=== PATIENT | male | born 1955 | race Caucasian/White ===

== ENCOUNTER 2022-01-06 19:04 | Inpatient (IN) ==
[2022-01-06] MEDS ORDERED: 0.9 % Sodium Chloride 1,000 ML IVC ONE (20:28)
[2022-01-06] MEDS ORDERED: cefTRIAXone 1,000 MG in Water for inj. (sterile) 10 ML IVP ONE (20:30)
[2022-01-06 21:13] LABS: Basophils % 0.2 %; Hematocrit 51.2 % (37.5-50.1); Hemoglobin 16.9 g/dL (12.9-16.9); Immature Granulocytes % 0.6 % (0-4); Lymphocytes # 0.7 K/mcL (0.6-4.6); Mean Corpuscular Volume 87.8 fL (83.0-100.0); Mean Platelet Volume 11.9 fL (9.4-12.4); Monocytes # 1.2 K/mcL (0.0-1.3); Monocytes % 6.3 %; Neutrophils # 16.6 K/mcL (1.6-8.9); Platelet Count 163 K/mcL (140-400); Red Blood Count 5.83 M/mcL (4.19-5.50); Red Cell Distribution Width 14.3 % (11.5-14.5); Segmented Neutrophils % 88.9 %; White Blood Count 18.7 K/mcL (4.3-11.1)
[2022-01-06 21:23] LABS: INR 1.5; Prothrombin Time 17.2 Seconds (9.4-12.1)
[2022-01-06 21:26] LABS: Activated Partial Thrombo Time 36.4 Seconds (26.0-36.0)
[2022-01-06 21:36] LABS: Alanine Aminotransferase 13 Units/L (7-52); Albumin 4.6 g/dL (3.5-5.7); Albumin/Globulin Ratio 1.4 (1.1-2.2); Alkaline Phosphatase 56 Units/L (34-104); Aspartate Amino Transferase 15 Units/L (13-39); BUN/Creatinine Ratio 14 (6-26); Bilirubin,Direct 0.2 mg/dL (0.0-0.2); Bilirubin,Total 1.2 mg/dL (0.3-1.0); Blood Urea Nitrogen 18 mg/dL (8-23); Calcium 9.6 mg/dL (8.6-10.3); Carbon Dioxide 24 mEq/L (23-29); Chloride 102 mEq/L (98-107); Globulin 3.3 g/dL (2.4-3.5); Glucose 151 mg/dL (70-105); Magnesium 2.1 mg/dL (1.6-2.6); Osmolality,Calculated 289 (280-300); Phosphorous 2.4 mg/dL (2.7-4.5); Potassium 3.9 mEq/L (3.5-5.1); Sodium 137 mEq/L (136-145); Total Protein 7.9 g/dL (6.4-8.9); Troponin I 0.08 ng/mL (< 0.04); eGFR For African Americans > 60 (> 60); eGFR For Non-African Americans 55 (> 60)
[2022-01-06 21:48] LABS: Influenza A PCR Negative (Negative); Influenza B PCR Negative (Negative); Resp. Syncytial Virus PCR Negative (Negative)
[2022-01-06 21:49] LABS: SARS-CoV-2 by PCR (In House) Negative (Negative)
[2022-01-06 22:05] LABS: Bacteria,Urine Few per hpf (None-Few); Bilirubin,Urine Negative (Negative); Blood,Urine Small (Negative); Clarity,Urine Clear (Clear); Color,Urine Yellow (Yellow); Glucose,Urine (UA) Normal (Normal); Ketones,Urine 40 mg/dL (Negative); Leukocyte Esterase,Urine Negative (Negative); Mucus,Urine Few per lpf (None-Few); Nitrite,Urine Negative (Negative); Protein,Urine 100 mg/dL (Neg-Trace); RBC,Urine 0-3 per hpf (0-3); Specific Gravity,Urine 1.027 (1.010-1.025); Squamous Epithelial Cell,Urine Few per hpf (None-Few); Urobilinogen,Urine Normal (Normal); WBC,Urine 0-3 per hpf (0-3)
[2022-01-06] MEDS ORDERED: Azithromycin 500 MG in 0.9 % Sodium Chloride 250 ML IVPB ONE (22:36)
[2022-01-07] MEDS ORDERED: Melatonin 3 MG TABLET PO PRN (00:04)
[2022-01-07] MEDS ORDERED: Acetaminophen 325 MG TABLET PO PRN (00:04)
[2022-01-07] MEDS ORDERED: *HR* HYDROcodone/Acet 5/325 mg TABLET PO PRN (00:04)
[2022-01-07] MEDS ORDERED: Naloxone 0.4 MG/ML INJ IVP PRN (00:04)
[2022-01-07] MEDS ORDERED: Ondansetron 4 MG/2 ML VIAL IVP PRN (00:04)
[2022-01-07] MEDS ORDERED: Acetaminophen IV 500 MG/50 ML BAG IVPB ONE (01:00)
[2022-01-07] MEDS ORDERED: Thiamine (B-1) 100 MG in 0.9 % Sodium Chloride 50 ML IVPB STA (01:06)
[2022-01-07 01:32] LABS: VBG HCO3 23 mEq/L (21-27); VBG PCO2 39 mmHg (41-51); VBG PH 7.37 pH Units (7.32-7.42); VBG PO2 50 mmHg (25-50)
[2022-01-07 01:38] LABS: Basophils % 0.2 %
[2022-01-07 01:40] LABS: Hematocrit 48.2 % (37.5-50.1); Hemoglobin 15.8 g/dL (12.9-16.9); Immature Granulocytes % 0.5 % (0-4); Immature Platelets 10.3 % (1.1-6.1); Mean Corpuscular HGB Conc 32.8 g/dL (31.6-35.5); Mean Corpuscular Volume 88.6 fL (83.0-100.0); Mean Platelet Volume 11.8 fL (9.4-12.4); Monocytes # 1.5 K/mcL (0.0-1.3); Monocytes % 7.3 %; Nucleated Red Blood Cells 0.1 /100 WBC (0); Platelet Count 139 K/mcL (140-400); Red Blood Count 5.44 M/mcL (4.19-5.50); Red Cell Distribution Width 14.4 % (11.5-14.5); White Blood Count 20.2 K/mcL (4.3-11.1)
[2022-01-07 01:41] LABS: Neutrophils # 17.6 K/mcL (1.6-8.9)
[2022-01-07 01:43] LABS: INR 1.5; Prothrombin Time 17.2 Seconds (9.4-12.1)
[2022-01-07 01:46] LABS: Activated Partial Thrombo Time 29.3 Seconds (26.0-36.0)
[2022-01-07 01:52] LABS: Alanine Aminotransferase 12 Units/L (7-52); Albumin 4.3 g/dL (3.5-5.7); Albumin/Globulin Ratio 1.3 (1.1-2.2); Alkaline Phosphatase 53 Units/L (34-104); Aspartate Amino Transferase 15 Units/L (13-39); BUN/Creatinine Ratio 17 (6-26); Blood Urea Nitrogen 17 mg/dL (8-23); C-Reactive Protein 133 mg/L (Less than 10); Calcium 8.9 mg/dL (8.6-10.3); Carbon Dioxide 23 mEq/L (23-29); Chloride 105 mEq/L (98-107); Chol/HDL Ratio 4.4 (0-4.9); Cholesterol 240 mg/dL (< 200); Creatine Kinase 133 Units/L (30-223); Globulin 3.4 g/dL (2.4-3.5); Glucose 122 mg/dL (70-105); HDL Cholesterol 55 mg/dL (40-59); LDL Cholesterol,Calculated 170 mg/dL (< 100); Osmolality,Calculated 287 (280-300); Phosphorous 1.5 mg/dL (2.7-4.5); Potassium 3.6 mEq/L (3.5-5.1); Sodium 137 mEq/L (136-145); Total Protein 7.7 g/dL (6.4-8.9); Triglycerides 74 mg/dL (< 150); eGFR For African Americans > 60 (> 60); eGFR For Non-African Americans > 60 (> 60)
[2022-01-07] MEDS ORDERED: Vancomycin 1,250 MG/262.5 ML IV.SOLN IVPB SCH (02:00)
[2022-01-07] MEDS: 0.9 % Sodium Chloride 1,000 ML IVC SCH (02:25)
[2022-01-07 02:43] LABS: Acetaminophen < 10 mcg/mL (10-20); Salicylate < 2.5 mg/dL (15.0-30.0)
[2022-01-07] MEDS ORDERED: Saliva Stimulant 44.3ml BOTTLE PO PRN (02:51)
[2022-01-07] MEDS ORDERED: *HR* Dextrose 50 % in Water (Syg) 50 ML SYRINGE IVP PRN (02:51)
[2022-01-07] MEDS ORDERED: D5% in Water 1,000 ML IVC PRN (02:51)
[2022-01-07] MEDS ORDERED: Dextrose Gel 15 GM/37.5 ML TUBE PO PRN ×2 (02:51)
[2022-01-07] MEDS ORDERED: Potassium Phosphate 44 MEQ in 0.9 % Sodium Chloride 250 ML IVPB ONE (03:00)
[2022-01-07 03:02] LABS: Thyroid Stimulating Hormone 0.207 mcIU/mL (0.340-5.600)
[2022-01-07] MEDS ORDERED: Iopamidol - 370 500 ML MLS IVP ONE (03:44)
[2022-01-07] MEDS: Ampicillin 2,000 MG in 0.9 % Sodium Chloride Mini Bag 100 ML IVPB SCH ×5 (03:56→20:12)
[2022-01-07 04:02] LABS: Estimated Average Glucose 117 mg/dl; Hemoglobin A1C 5.7 %
[2022-01-07 04:07] LABS: Folate 5.7 ng/mL (3.0-16.0)
[2022-01-07] MEDS: Ipratropium/Albuterol Neb 3 ML IH SCH ×4 (04:11→22:33)
[2022-01-07] MEDS ORDERED: Piperacillin/Tazobactam 3.375 GM in 0.9 % Sodium Chloride Mini Bag 100 ML IVPB SCH (08:00)
[2022-01-07] MEDS ORDERED: Thiamine (B-1) 100 MG in 0.9 % Sodium Chloride 50 ML IVPB SCH (09:00)
[2022-01-07] MEDS ORDERED: cefTRIAXone 2,000 MG in 0.9 % Sodium Chloride Mini Bag 100 ML IVPB SCH (09:00)
[2022-01-07] MEDS: Lactobacillus 1 EACH CAP.SPRINK PO SCH ×2 (10:30→20:11)
[2022-01-07] MEDS: Aspirin Enteric Coated 81 MG Tablet PO SCH (10:30)
[2022-01-07] MEDS: Chlorhexidine Rinse 15 ML MOUTHWASH MM SCH (10:30)
[2022-01-07] MEDS: cefTRIAXone 2,000 MG in 0.9 % Sodium Chloride Mini Bag 100 ML IVPB SCH ×2 (10:30→20:12)
[2022-01-07] MEDS: Acyclovir 700 MG in D5% in Water 250 ML IVPB SCH ×2 (10:30→15:55)
[2022-01-07] MEDS ORDERED: *HR* LORazepam 2 MG/ML VIAL IVP ONE (11:22)
[2022-01-07 13:13] LABS: Red Blood Cell,CSF < 2000 RBC/mcL
[2022-01-07 13:50] LABS: Glucose,CSF 39 mg/dL (40-70); Total Protein,CSF > 200 mg/dL (15-45)
[2022-01-07 14:08] LABS: Appearance,CSF Hazy (Clear)
[2022-01-07] MEDS: Thiamine (B-1) 100 MG, Folic Acid 1 MG, MVI, adult with vitamin K 10 ML in 0.9 % Sodi... IVPB SCH (18:39)
[2022-01-07] MEDS ORDERED: Azithromycin 500 MG in 0.9 % Sodium Chloride 250 ML IVPB SCH (20:00)
[2022-01-07] MEDS: cefTRIAXone 2,000 MG in 0.9 % Sodium Chloride 20 ML IVPB SCH (20:33)
[2022-01-07 20:41] LABS: Adenovirus Not Detected (Not Detect); Bordetella Pertussis Not Detected (Not Detect); Chlamydophila pneumoniae Not Detected (Not Detect); Coronavirus 229E Not Detected (Not Detect); Coronavirus HKU1 Not Detected (Not Detect); Coronavirus NL63 Not Detected (Not Detect); Coronavirus OC43 Not Detected (Not Detect); Human Metapneumovirus Not Detected (Not Detect); Human Rhinovirus/Enterovirus Not Detected (Not Detect); Influenza A Subtype 2009 H1 Not Detected (Not Detect); Influenza B Not Detected (Not Detect); Mycoplasma pneumoniae Not Detected (Not Detect); Parainfluenza Virus 1 Not Detected (Not Detect); Parainfluenza Virus 2 Not Detected (Not Detect); Parainfluenza Virus 3 Not Detected (Not Detect); Parainfluenza Virus 4 Not Detected (Not Detect); Respiratory Syncytial Virus Not Detected (Not Detect); SARS-CoV-2 Not Detected (Not Detect)
[2022-01-08] MEDS: Chlorhexidine Rinse 15 ML MOUTHWASH MM SCH ×3 (00:39→22:07)
[2022-01-08] MEDS: Ampicillin 2,000 MG in 0.9 % Sodium Chloride Mini Bag 100 ML IVPB SCH ×6 (00:45→22:23)
[2022-01-08] MEDS: Acyclovir 700 MG in D5% in Water 250 ML IVPB SCH ×3 (00:45→16:27)
[2022-01-08] MEDS: Ipratropium/Albuterol Neb 3 ML IH SCH ×4 (04:33→21:25)
[2022-01-08 05:55] LABS: Basophils % 0.2 %; Hematocrit 40.5 % (37.5-50.1); Immature Granulocytes % 0.4 % (0-4); Lymphocytes # 1.1 K/mcL (0.6-4.6); Lymphocytes % 7.4 %; Mean Corpuscular HGB Conc 32.3 g/dL (31.6-35.5); Mean Corpuscular Hemoglobin 29.2 pg (28.0-33.3); Mean Corpuscular Volume 90.2 fL (83.0-100.0); Mean Platelet Volume 11.8 fL (9.4-12.4); Monocytes # 1.4 K/mcL (0.0-1.3); Monocytes % 9.2 %; Neutrophils # 12.2 K/mcL (1.6-8.9); Platelet Count 122 K/mcL (140-400); Red Blood Count 4.49 M/mcL (4.19-5.50); Segmented Neutrophils % 82.8 %; White Blood Count 14.7 K/mcL (4.3-11.1)
[2022-01-08 05:58] LABS: Hemoglobin 13.1 g/dL (12.9-16.9)
[2022-01-08 06:02] LABS: INR 1.3; Prothrombin Time 14.4 Seconds (9.4-12.1)
[2022-01-08 06:04] LABS: Activated Partial Thrombo Time 28.1 Seconds (26.0-36.0)
[2022-01-08 06:23] LABS: BUN/Creatinine Ratio 13 (6-26); Blood Urea Nitrogen 11 mg/dL (8-23); Carbon Dioxide 23 mEq/L (23-29); Chloride 108 mEq/L (98-107); Glucose 115 mg/dL (70-105); Magnesium 2.1 mg/dL (1.6-2.6); Osmolality,Calculated 288 (280-300); Phosphorous 1.6 mg/dL (2.7-4.5); Potassium 3.7 mEq/L (3.5-5.1); Sodium 139 mEq/L (136-145); eGFR For African Americans > 60 (> 60); eGFR For Non-African Americans > 60 (> 60)
[2022-01-08] MEDS: cefTRIAXone 2,000 MG in 0.9 % Sodium Chloride 20 ML IVPB SCH ×2 (09:18→22:06)
[2022-01-08] MEDS: Dexamethasone Sodium Phos/PF 10 MG/ML VIAL IVP SCH ×3 (09:18→22:08)
[2022-01-08] MEDS: Aspirin Enteric Coated 81 MG Tablet PO SCH (09:19)
[2022-01-08] MEDS: Lactobacillus 1 EACH CAP.SPRINK PO SCH ×2 (09:19→22:08)
[2022-01-08] MEDS ORDERED: 0.9 % Sodium Chloride 1,000 ML IVC SCH (11:00)
[2022-01-08] MEDS: 0.9 % Sodium Chloride 1,000 ML IVC SCH (13:00)
[2022-01-08] MEDS ORDERED: Potassium Phosphate 44 MEQ in 0.9 % Sodium Chloride 250 ML IVPB ONE (13:00)
[2022-01-08] MEDS: Thiamine (B-1) 100 MG, Folic Acid 1 MG, MVI, adult with vitamin K 10 ML in 0.9 % Sodi... IVPB SCH (22:05)
[2022-01-09] MEDS: Dexamethasone Sodium Phos/PF 10 MG/ML VIAL IVP SCH ×4 (01:46→21:08)
[2022-01-09] MEDS: Ampicillin 2,000 MG in 0.9 % Sodium Chloride Mini Bag 100 ML IVPB SCH ×6 (02:00→21:09)
[2022-01-09] MEDS: Acyclovir 700 MG in D5% in Water 250 ML IVPB SCH ×3 (02:30→15:09)
[2022-01-09] MEDS: Ipratropium/Albuterol Neb 3 ML IH SCH ×4 (04:01→22:15)
[2022-01-09] MEDS: *HR* Enoxaparin 40 MG/0.4 ML SYRINGE SQ SCH (04:58)
[2022-01-09 05:05] LABS: Immature Granulocytes % 0.5 % (0-4); Lymphocytes % 3.5 %; Monocytes % 3.9 %; Red Blood Count 3.96 M/mcL (4.19-5.50); Red Cell Distribution Width 13.5 % (11.5-14.5); Segmented Neutrophils % 92.1 %
[2022-01-09 05:07] LABS: Hematocrit 34.6 % (37.5-50.1); Hemoglobin 11.5 g/dL (12.9-16.9); Immature Platelets 11.7 % (1.1-6.1); Lymphocytes # 0.4 K/mcL (0.6-4.6); Mean Corpuscular HGB Conc 33.2 g/dL (31.6-35.5); Mean Corpuscular Volume 87.4 fL (83.0-100.0); Mean Platelet Volume 11.7 fL (9.4-12.4); Monocytes # 0.4 K/mcL (0.0-1.3); Platelet Count 129 K/mcL (140-400); White Blood Count 10.8 K/mcL (4.3-11.1)
[2022-01-09 05:22] LABS: BUN/Creatinine Ratio 15 (6-26); Blood Urea Nitrogen 13 mg/dL (8-23); Calcium 7.7 mg/dL (8.6-10.3); Carbon Dioxide 25 mEq/L (23-29); Chloride 106 mEq/L (98-107); Glucose 182 mg/dL (70-105); Magnesium 2.3 mg/dL (1.6-2.6); Osmolality,Calculated 287 (280-300); Phosphorous 1.3 mg/dL (2.7-4.5); Potassium 3.5 mEq/L (3.5-5.1); Sodium 136 mEq/L (136-145); eGFR For African Americans > 60 (> 60); eGFR For Non-African Americans > 60 (> 60)
[2022-01-09 08:44] LABS: Amphetamine Screen,Urine Negative ng/mL (Cutoff=1000); Barbiturate Screen,Urine Negative ng/mL (Cutoff=200); Benzodiazepines Screen,Urine Negative ng/mL (Cutoff=200); Cannabinoid Screen,Urine Negative ng/mL (Cutoff = 50); Cocaine Screen,Urine Negative ng/mL (Cutoff= 300); Opiate Screen,Urine Negative ng/mL (Cutoff=300); Phencyclidine Screen,Urine Negative ng/mL (Cutoff=25)
[2022-01-09] MEDS: cefTRIAXone 2,000 MG in 0.9 % Sodium Chloride 20 ML IVPB SCH ×2 (08:58→21:08)
[2022-01-09] MEDS: Chlorhexidine Rinse 15 ML MOUTHWASH MM SCH (09:00)
[2022-01-09] MEDS: Lactobacillus 1 EACH CAP.SPRINK PO SCH ×2 (09:01→21:08)
[2022-01-09] MEDS: Aspirin Enteric Coated 81 MG Tablet PO SCH (09:01)
[2022-01-09] MEDS: Vancomycin 1,500 MG/265 ML IV.SOLN IVPB SCH (11:12)
[2022-01-09] MEDS: Thiamine (B-1) 100 MG, Folic Acid 1 MG, MVI, adult with vitamin K 10 ML in 0.9 % Sodi... IVPB SCH (17:54)
[2022-01-10] MEDS: Ampicillin 2,000 MG in 0.9 % Sodium Chloride Mini Bag 100 ML IVPB SCH ×7 (00:02→23:30)
[2022-01-10] MEDS: Acyclovir 700 MG in D5% in Water 250 ML IVPB SCH ×4 (00:34→20:42)
[2022-01-10] MEDS: Vancomycin 1,500 MG/265 ML IV.SOLN IVPB SCH ×2 (00:36→13:10)
[2022-01-10] MEDS: Dexamethasone Sodium Phos/PF 10 MG/ML VIAL IVP SCH ×5 (01:37→23:29)
[2022-01-10] MEDS: Ipratropium/Albuterol Neb 3 ML IH SCH ×2 (03:53→10:30)
[2022-01-10] MEDS: *HR* Enoxaparin 40 MG/0.4 ML SYRINGE SQ SCH (05:16)
[2022-01-10 06:34] LABS: BUN/Creatinine Ratio 18 (6-26); Blood Urea Nitrogen 14 mg/dL (8-23); Calcium 7.9 mg/dL (8.6-10.3); Carbon Dioxide 25 mEq/L (23-29); Chloride 107 mEq/L (98-107); Glucose 147 mg/dL (70-105); Osmolality,Calculated 291 (280-300); Phosphorous 2.9 mg/dL (2.7-4.5); Potassium 3.4 mEq/L (3.5-5.1); Sodium 139 mEq/L (136-145)
[2022-01-10] MEDS: cefTRIAXone 2,000 MG in 0.9 % Sodium Chloride 20 ML IVPB SCH ×2 (10:07→20:41)
[2022-01-10] MEDS: Aspirin Enteric Coated 81 MG Tablet PO SCH (10:08)
[2022-01-10] MEDS: Lactobacillus 1 EACH CAP.SPRINK PO SCH ×2 (10:08→20:41)
[2022-01-10] MEDS ORDERED: Ipratropium/Albuterol Neb 3 ML IH PRN (14:51)
[2022-01-10 17:26] LABS: Alanine Aminotransferase 220 Units/L (7-52); Albumin 3.3 g/dL (3.5-5.7); Albumin/Globulin Ratio 1.2 (1.1-2.2); Alkaline Phosphatase 72 Units/L (34-104); Aspartate Amino Transferase 84 Units/L (13-39); BUN/Creatinine Ratio 17 (6-26); Bilirubin,Direct 0.1 mg/dL (0.0-0.2); Bilirubin,Indirect 0.2 mg/dL (0.0-1.0); Bilirubin,Total 0.3 mg/dL (0.3-1.0); Blood Urea Nitrogen 15 mg/dL (8-23); Calcium 8.1 mg/dL (8.6-10.3); Carbon Dioxide 25 mEq/L (23-29); Chloride 108 mEq/L (98-107); Globulin 2.7 g/dL (2.4-3.5); Glucose 166 mg/dL (70-105); Osmolality,Calculated 293 (280-300); Potassium 3.6 mEq/L (3.5-5.1); Sodium 139 mEq/L (136-145)
[2022-01-10 18:18] LABS: Basophils % 0.1 %; Hematocrit 38.2 % (37.5-50.1); Hemoglobin 12.6 g/dL (12.9-16.9); Immature Granulocytes % 1.1 % (0-4); Lymphocytes # 0.5 K/mcL (0.6-4.6); Lymphocytes % 3.4 %; Mean Corpuscular Hemoglobin 28.7 pg (28.0-33.3); Mean Platelet Volume 12.2 fL (9.4-12.4); Monocytes # 0.8 K/mcL (0.0-1.3); Monocytes % 5.6 %; Neutrophils # 12.6 K/mcL (1.6-8.9); Platelet Count 177 K/mcL (140-400); Red Blood Count 4.39 M/mcL (4.19-5.50); Red Cell Distribution Width 13.9 % (11.5-14.5); Segmented Neutrophils % 89.8 %
[2022-01-11] MEDS: Vancomycin 1,500 MG/265 ML IV.SOLN IVPB SCH (00:19)
[2022-01-11 02:45] LABS: Basophils % 0.1 %; Hematocrit 34.6 % (37.5-50.1); Hemoglobin 11.5 g/dL (12.9-16.9); Immature Granulocytes % 1.1 % (0-4); Lymphocytes # 0.4 K/mcL (0.6-4.6); Lymphocytes % 3.5 %; Mean Corpuscular HGB Conc 33.2 g/dL (31.6-35.5); Mean Corpuscular Hemoglobin 28.9 pg (28.0-33.3); Mean Corpuscular Volume 86.9 fL (83.0-100.0); Mean Platelet Volume 12.8 fL (9.4-12.4); Monocytes # 0.7 K/mcL (0.0-1.3); Monocytes % 5.7 %; Neutrophils # 10.8 K/mcL (1.6-8.9); Platelet Count 174 K/mcL (140-400); Red Blood Count 3.98 M/mcL (4.19-5.50); Red Cell Distribution Width 13.7 % (11.5-14.5); Segmented Neutrophils % 89.6 %
[2022-01-11 03:01] LABS: BUN/Creatinine Ratio 23 (6-26); Blood Urea Nitrogen 19 mg/dL (8-23); Carbon Dioxide 25 mEq/L (23-29); Chloride 108 mEq/L (98-107); Glucose 144 mg/dL (70-105); Osmolality,Calculated 293 (280-300); Sodium 139 mEq/L (136-145)
[2022-01-11] MEDS ORDERED: hydrALAZINE 10 MG TABLET PO ONE (03:48)
[2022-01-11] MEDS: Ampicillin 2,000 MG in 0.9 % Sodium Chloride Mini Bag 100 ML IVPB SCH ×6 (03:59→23:55)
[2022-01-11] MEDS: Acyclovir 700 MG in D5% in Water 250 ML IVPB SCH ×3 (03:59→20:26)
[2022-01-11] MEDS: Dexamethasone Sodium Phos/PF 10 MG/ML VIAL IVP SCH (05:28)
[2022-01-11] MEDS: *HR* Enoxaparin 40 MG/0.4 ML SYRINGE SQ SCH (05:28)
[2022-01-11] MEDS: amLODIPine 5 MG TABLET PO SCH (07:52)
[2022-01-11] MEDS: Lactobacillus 1 EACH CAP.SPRINK PO SCH ×2 (07:52→20:30)
[2022-01-11] MEDS: Aspirin Enteric Coated 81 MG Tablet PO SCH (07:52)
[2022-01-11] MEDS: cefTRIAXone 2,000 MG in 0.9 % Sodium Chloride 20 ML IVPB SCH ×2 (07:52→21:08)
[2022-01-11 10:37] LABS: Albumin 2.9 g/dL (3.5-5.7); Albumin/Globulin Ratio 1.2 (1.1-2.2); Bilirubin,Indirect 0.3 mg/dL (0.0-1.0); Bilirubin,Total 0.3 mg/dL (0.3-1.0); Globulin 2.4 g/dL (2.4-3.5); Total Protein 5.3 g/dL (6.4-8.9)
[2022-01-11] MEDS ORDERED: Vancomycin 1,750 MG/517.5 ML IV.SOLN IVPB SCH (12:00)
[2022-01-11 14:12] LABS: Influenza A PCR Negative (Negative); Influenza B PCR Negative (Negative); Resp. Syncytial Virus PCR Negative (Negative)
[2022-01-11 14:13] LABS: SARS-CoV-2 by PCR (In House) Negative (Negative)
[2022-01-11 17:50] LABS: HSV Source CSF
[2022-01-12 01:43] LABS: Basophils % 0.3 %; Hematocrit 36.5 % (37.5-50.1); Hemoglobin 11.9 g/dL (12.9-16.9); Immature Granulocytes % 2.3 % (0-4); Lymphocytes # 0.9 K/mcL (0.6-4.6); Lymphocytes % 6.1 %; Mean Corpuscular HGB Conc 32.6 g/dL (31.6-35.5); Mean Corpuscular Hemoglobin 28.9 pg (28.0-33.3); Mean Corpuscular Volume 88.6 fL (83.0-100.0); Mean Platelet Volume 12.3 fL (9.4-12.4); Monocytes # 1.2 K/mcL (0.0-1.3); Monocytes % 8.5 %; Neutrophils # 12.1 K/mcL (1.6-8.9); Platelet Count 186 K/mcL (140-400); Red Blood Count 4.12 M/mcL (4.19-5.50); Red Cell Distribution Width 13.8 % (11.5-14.5); Segmented Neutrophils % 82.8 %; White Blood Count 14.6 K/mcL (4.3-11.1)
[2022-01-12 02:06] LABS: Blood Urea Nitrogen 16 mg/dL (8-23); Calcium 7.7 mg/dL (8.6-10.3); Carbon Dioxide 29 mEq/L (23-29); Chloride 108 mEq/L (98-107); Glucose 108 mg/dL (70-105); Osmolality,Calculated 294 (280-300); Potassium 3.8 mEq/L (3.5-5.1); Sodium 141 mEq/L (136-145)
[2022-01-12 03:02] LABS: BUN/Creatinine Ratio 19 (6-26)
[2022-01-12] MEDS: Acyclovir 700 MG in D5% in Water 250 ML IVPB SCH ×3 (04:19→19:52)
[2022-01-12] MEDS: Ampicillin 2,000 MG in 0.9 % Sodium Chloride Mini Bag 100 ML IVPB SCH ×6 (04:20→23:16)
[2022-01-12] MEDS: *HR* Enoxaparin 40 MG/0.4 ML SYRINGE SQ SCH (05:51)
[2022-01-12] MEDS ORDERED: Gadolinium Contrast Agent (WT Based) IV PRN (09:27)
[2022-01-12] MEDS: cefTRIAXone 2,000 MG in 0.9 % Sodium Chloride 20 ML IVPB SCH ×2 (09:29→20:51)
[2022-01-12] MEDS: amLODIPine 5 MG TABLET PO SCH (09:31)
[2022-01-12] MEDS: Lactobacillus 1 EACH CAP.SPRINK PO SCH ×2 (09:31→20:48)
[2022-01-12] MEDS: Aspirin Enteric Coated 81 MG Tablet PO SCH (09:31)
[2022-01-12] MEDS ORDERED: amLODIPine 5 MG TABLET PO ONE (10:47)
[2022-01-12] MEDS ORDERED: *HR* LORazepam 2 MG/ML VIAL IVP ONE (14:30)
[2022-01-13] MEDS: Ampicillin 2,000 MG in 0.9 % Sodium Chloride Mini Bag 100 ML IVPB SCH ×5 (03:23→20:44)
[2022-01-13] MEDS: Acyclovir 700 MG in D5% in Water 250 ML IVPB SCH ×3 (03:24→21:24)
[2022-01-13] MEDS: *HR* Enoxaparin 40 MG/0.4 ML SYRINGE SQ SCH (06:13)
[2022-01-13] MEDS: cefTRIAXone 2,000 MG in 0.9 % Sodium Chloride 20 ML IVPB SCH ×2 (07:44→20:43)
[2022-01-13] MEDS: Lactobacillus 1 EACH CAP.SPRINK PO SCH ×2 (07:45→20:44)
[2022-01-13] MEDS: amLODIPine 5 MG TABLET PO SCH (07:45)
[2022-01-13] MEDS: Aspirin Enteric Coated 81 MG Tablet PO SCH (07:45)
[2022-01-13 09:58] LABS: Basophils # 0.1 K/mcL (0.0-0.2); Basophils % 0.6 %; Eosinophils # 0.3 K/mcL (0.0-0.6); Eosinophils % 2.4 %; Hematocrit 41.4 % (37.5-50.1); Immature Granulocytes % 3.3 % (0-4); Lymphocytes # 1.4 K/mcL (0.6-4.6); Lymphocytes % 10.8 %; Mean Corpuscular HGB Conc 32.9 g/dL (31.6-35.5); Mean Corpuscular Hemoglobin 28.8 pg (28.0-33.3); Mean Corpuscular Volume 87.7 fL (83.0-100.0); Mean Platelet Volume 11.3 fL (9.4-12.4); Monocytes # 0.8 K/mcL (0.0-1.3); Monocytes % 6.4 %; Neutrophils # 9.7 K/mcL (1.6-8.9); Nucleated Red Blood Cells 0.3 /100 WBC (0); Platelet Count 241 K/mcL (140-400); Red Blood Count 4.72 M/mcL (4.19-5.50); Red Cell Distribution Width 13.7 % (11.5-14.5); Segmented Neutrophils % 76.5 %; White Blood Count 12.7 K/mcL (4.3-11.1)
[2022-01-13 10:17] LABS: Hemoglobin 13.6 g/dL (12.9-16.9)
[2022-01-13 10:23] LABS: Calcium 7.9 mg/dL (8.6-10.3); Potassium 3.6 mEq/L (3.5-5.1)
[2022-01-13 10:37] LABS: Borrelia burgdorferi Abs CSF 0.19 LIV (<=0.99)
[2022-01-14] MEDS: Ampicillin 2,000 MG in 0.9 % Sodium Chloride Mini Bag 100 ML IVPB SCH ×6 (01:45→19:26)
[2022-01-14] MEDS: Acyclovir 700 MG in D5% in Water 250 ML IVPB SCH ×3 (05:39→19:26)
[2022-01-14] MEDS: *HR* Enoxaparin 40 MG/0.4 ML SYRINGE SQ SCH (06:07)
[2022-01-14] MEDS: cefTRIAXone 2,000 MG in 0.9 % Sodium Chloride 20 ML IVPB SCH ×2 (07:39→21:40)
[2022-01-14] MEDS: amLODIPine 5 MG TABLET PO SCH (07:39)
[2022-01-14] MEDS: Aspirin Enteric Coated 81 MG Tablet PO SCH (07:39)
[2022-01-14] MEDS: Lactobacillus 1 EACH CAP.SPRINK PO SCH ×2 (07:39→21:39)
[2022-01-14 09:51] LABS: Basophils # 0.1 K/mcL (0.0-0.2); Basophils % 0.5 %; Eosinophils # 0.4 K/mcL (0.0-0.6); Eosinophils % 3.8 %; Hematocrit 39.9 % (37.5-50.1); Hemoglobin 13.1 g/dL (12.9-16.9); Immature Granulocytes % 4.4 % (0-4); Lymphocytes # 1.1 K/mcL (0.6-4.6); Mean Corpuscular HGB Conc 32.8 g/dL (31.6-35.5); Mean Corpuscular Volume 88.3 fL (83.0-100.0); Mean Platelet Volume 10.9 fL (9.4-12.4); Monocytes # 0.8 K/mcL (0.0-1.3); Monocytes % 7.2 %; Neutrophils # 8.4 K/mcL (1.6-8.9); Nucleated Red Blood Cells 0.2 /100 WBC (0); Platelet Count 227 K/mcL (140-400); Red Blood Count 4.52 M/mcL (4.19-5.50); Red Cell Distribution Width 13.9 % (11.5-14.5); Segmented Neutrophils % 74.1 %; White Blood Count 11.4 K/mcL (4.3-11.1)
[2022-01-14 10:06] LABS: BUN/Creatinine Ratio 15 (6-26); Blood Urea Nitrogen 13 mg/dL (8-23); Calcium 7.8 mg/dL (8.6-10.3); Carbon Dioxide 30 mEq/L (23-29); Chloride 104 mEq/L (98-107); Glucose 91 mg/dL (70-105); Osmolality,Calculated 286 (280-300); Potassium 3.6 mEq/L (3.5-5.1); Sodium 138 mEq/L (136-145)
[2022-01-14 10:23] LABS: ANA IgG by ELISA NONE DETECTED (None Detected)
[2022-01-15] MEDS: Ampicillin 2,000 MG in 0.9 % Sodium Chloride Mini Bag 100 ML IVPB SCH ×4 (00:58→12:47)
[2022-01-15 05:35] LABS: Basophils # 0.1 K/mcL (0.0-0.2); Basophils % 0.4 %; Eosinophils # 0.6 K/mcL (0.0-0.6); Eosinophils % 4.6 %; Hematocrit 37.7 % (37.5-50.1); Hemoglobin 12.5 g/dL (12.9-16.9); Immature Granulocytes % 3.3 % (0-4); Lymphocytes # 1.3 K/mcL (0.6-4.6); Lymphocytes % 10.8 %; Mean Corpuscular HGB Conc 33.2 g/dL (31.6-35.5); Mean Corpuscular Hemoglobin 29.1 pg (28.0-33.3); Mean Corpuscular Volume 87.9 fL (83.0-100.0); Mean Platelet Volume 11.1 fL (9.4-12.4); Monocytes # 0.9 K/mcL (0.0-1.3); Monocytes % 7.4 %; Neutrophils # 8.8 K/mcL (1.6-8.9); Platelet Count 261 K/mcL (140-400); Red Blood Count 4.29 M/mcL (4.19-5.50); Red Cell Distribution Width 13.9 % (11.5-14.5); Segmented Neutrophils % 73.5 %
[2022-01-15] MEDS: Acyclovir 700 MG in D5% in Water 250 ML IVPB SCH ×3 (05:47→21:44)
[2022-01-15] MEDS: *HR* Enoxaparin 40 MG/0.4 ML SYRINGE SQ SCH ×2 (05:47→06:42)
[2022-01-15 06:22] LABS: Albumin/Globulin Ratio 1.3 (1.1-2.2); BUN/Creatinine Ratio 15 (6-26); Bilirubin,Direct 0.1 mg/dL (0.0-0.2); Bilirubin,Indirect 0.2 mg/dL (0.0-1.0); Bilirubin,Total 0.3 mg/dL (0.3-1.0); Blood Urea Nitrogen 13 mg/dL (8-23); Carbon Dioxide 28 mEq/L (23-29); Chloride 106 mEq/L (98-107); Globulin 2.3 g/dL (2.4-3.5); Glucose 90 mg/dL (70-105); Osmolality,Calculated 290 (280-300); Potassium 3.6 mEq/L (3.5-5.1); Sodium 140 mEq/L (136-145); Total Protein 5.3 g/dL (6.4-8.9)
[2022-01-15] MEDS: Lactobacillus 1 EACH CAP.SPRINK PO SCH ×2 (07:18→21:43)
[2022-01-15] MEDS: amLODIPine 5 MG TABLET PO SCH (07:18)
[2022-01-15] MEDS: Aspirin Enteric Coated 81 MG Tablet PO SCH (07:19)
[2022-01-15] MEDS: cefTRIAXone 2,000 MG in 0.9 % Sodium Chloride 20 ML IVPB SCH ×2 (07:19→21:43)
[2022-01-15 09:20] LABS: California Encephalitis IgG < 1:16 (< 1:16); California Encephalitis IgM < 1:16 (< 1:16); E.Equine Encephalitis IgG < 1:16 (< 1:16); E.Equine Encephalitis IgM < 1:16 (< 1:16); St. Louis Encephalitis IgG < 1:16 (< 1:16); St. Louis Encephalitis IgM < 1:16 (< 1:16); W.Equine Encephalitis IgG < 1:16 (< 1:16); W.Equine Encephalitis IgM < 1:16 (< 1:16)
[2022-01-15 12:38] LABS: Appearance,CSF Clear (Clear)
[2022-01-15 12:40] LABS: Red Blood Cell,CSF < 2000 RBC/mcL
[2022-01-15 13:02] LABS: Glucose,CSF 47 mg/dL (40-70); Total Protein,CSF 61 mg/dL (15-45)
[2022-01-15 13:52] LABS: Basophils,CSF 0 %; Eosinophils,CSF 0 %; Other Cells,CSF 0 %
[2022-01-16] MEDS: Acyclovir 700 MG in D5% in Water 250 ML IVPB SCH ×2 (04:19→12:28)
[2022-01-16 04:38] LABS: Basophils # 0.1 K/mcL (0.0-0.2); Basophils % 0.5 %; Eosinophils # 0.5 K/mcL (0.0-0.6); Eosinophils % 4.1 %; Hematocrit 37.8 % (37.5-50.1); Hemoglobin 12.6 g/dL (12.9-16.9); Immature Granulocytes % 2.6 % (0-4); Lymphocytes # 1.4 K/mcL (0.6-4.6); Lymphocytes % 10.2 %; Mean Corpuscular HGB Conc 33.3 g/dL (31.6-35.5); Mean Corpuscular Hemoglobin 29.4 pg (28.0-33.3); Mean Corpuscular Volume 88.3 fL (83.0-100.0); Mean Platelet Volume 10.9 fL (9.4-12.4); Monocytes # 1.2 K/mcL (0.0-1.3); Monocytes % 9.1 %; Neutrophils # 9.7 K/mcL (1.6-8.9); Platelet Count 283 K/mcL (140-400); Red Blood Count 4.28 M/mcL (4.19-5.50); Red Cell Distribution Width 14.1 % (11.5-14.5); Segmented Neutrophils % 73.5 %; White Blood Count 13.3 K/mcL (4.3-11.1)
[2022-01-16 04:57] LABS: BUN/Creatinine Ratio 16 (6-26); Blood Urea Nitrogen 14 mg/dL (8-23); Calcium 8.1 mg/dL (8.6-10.3); Carbon Dioxide 30 mEq/L (23-29); Chloride 105 mEq/L (98-107); Glucose 92 mg/dL (70-105); Osmolality,Calculated 288 (280-300); Potassium 3.5 mEq/L (3.5-5.1); Sodium 139 mEq/L (136-145)
[2022-01-16] MEDS: cefTRIAXone 2,000 MG in 0.9 % Sodium Chloride 20 ML IVPB SCH ×2 (09:45→23:24)
[2022-01-16] MEDS: Lactobacillus 1 EACH CAP.SPRINK PO SCH ×2 (09:46→23:21)
[2022-01-16] MEDS: amLODIPine 5 MG TABLET PO SCH (09:46)
[2022-01-16] MEDS: Aspirin Enteric Coated 81 MG Tablet PO SCH (09:46)
[2022-01-16 10:33] LABS: Enterovirus RNA Qual (PCR) NOT DETECTED
[2022-01-16 15:54] LABS: West Nile Virus PCR Source CSF
[2022-01-17] MEDS: *HR* Enoxaparin 40 MG/0.4 ML SYRINGE SQ SCH (05:50)
[2022-01-17] MEDS: cefTRIAXone 2,000 MG in 0.9 % Sodium Chloride 20 ML IVPB SCH ×2 (09:58→21:50)
[2022-01-17] MEDS: amLODIPine 5 MG TABLET PO SCH (09:59)
[2022-01-17] MEDS: Aspirin Enteric Coated 81 MG Tablet PO SCH (09:59)
[2022-01-17] MEDS: Lactobacillus 1 EACH CAP.SPRINK PO SCH ×2 (09:59→20:22)
[2022-01-18] MEDS: *HR* Enoxaparin 40 MG/0.4 ML SYRINGE SQ SCH (05:17)
[2022-01-18] MEDS: Lactobacillus 1 EACH CAP.SPRINK PO SCH ×2 (09:45→21:40)
[2022-01-18] MEDS: amLODIPine 5 MG TABLET PO SCH (09:45)
[2022-01-18] MEDS: Aspirin Enteric Coated 81 MG Tablet PO SCH (09:45)
[2022-01-18] MEDS: cefTRIAXone 2,000 MG in 0.9 % Sodium Chloride 20 ML IVPB SCH (09:51)
[2022-01-18] MEDS ORDERED: cefTRIAXone 2,000 MG in 0.9 % Sodium Chloride 20 ML IVPB SCH (19:00)
[2022-01-19 03:49] LABS: BUN/Creatinine Ratio 15 (6-26); Blood Urea Nitrogen 12 mg/dL (8-23); Calcium 8.6 mg/dL (8.6-10.3); Carbon Dioxide 26 mEq/L (23-29); Chloride 106 mEq/L (98-107); Glucose 93 mg/dL (70-105); Osmolality,Calculated 285 (280-300); Potassium 3.8 mEq/L (3.5-5.1); Sodium 138 mEq/L (136-145)
[2022-01-19 03:55] LABS: Basophils % 0.4 %; Eosinophils # 0.2 K/mcL (0.0-0.6); Eosinophils % 2.3 %; Hematocrit 38.8 % (37.5-50.1); Hemoglobin 12.5 g/dL (12.9-16.9); Immature Granulocytes % 2.1 % (0-4); Lymphocytes # 1.6 K/mcL (0.6-4.6); Lymphocytes % 15.6 %; Mean Corpuscular HGB Conc 32.2 g/dL (31.6-35.5); Mean Corpuscular Hemoglobin 28.7 pg (28.0-33.3); Mean Platelet Volume 10.9 fL (9.4-12.4); Monocytes # 1.1 K/mcL (0.0-1.3); Monocytes % 10.8 %; Neutrophils # 7.1 K/mcL (1.6-8.9); Platelet Count 324 K/mcL (140-400); Red Blood Count 4.36 M/mcL (4.19-5.50); Red Cell Distribution Width 14.3 % (11.5-14.5); Segmented Neutrophils % 68.8 %; White Blood Count 10.2 K/mcL (4.3-11.1)
[2022-01-19] MEDS: *HR* Enoxaparin 40 MG/0.4 ML SYRINGE SQ SCH (05:49)
[2022-01-19] MEDS ORDERED: cefTRIAXone 2,000 MG in 0.9 % Sodium Chloride Mini Bag 100 ML IVPB SCH (07:00)
[2022-01-19] MEDS: amLODIPine 5 MG TABLET PO SCH (10:03)
[2022-01-19] MEDS: Lactobacillus 1 EACH CAP.SPRINK PO SCH ×2 (10:03→21:27)
[2022-01-19] MEDS: cefTRIAXone 2,000 MG in 0.9 % Sodium Chloride Mini Bag 100 ML IVPB SCH (17:36)
[2022-01-20] MEDS: cefTRIAXone 2,000 MG in 0.9 % Sodium Chloride Mini Bag 100 ML IVPB SCH ×2 (06:08→17:28)
[2022-01-20] MEDS: *HR* Enoxaparin 40 MG/0.4 ML SYRINGE SQ SCH (06:09)
[2022-01-20] MEDS: Lactobacillus 1 EACH CAP.SPRINK PO SCH ×2 (08:56→20:08)
[2022-01-20] MEDS: amLODIPine 5 MG TABLET PO SCH (08:56)
[2022-01-21] MEDS: cefTRIAXone 2,000 MG in 0.9 % Sodium Chloride Mini Bag 100 ML IVPB SCH (05:04)
[2022-01-21] MEDS: *HR* Enoxaparin 40 MG/0.4 ML SYRINGE SQ SCH (05:05)
[2022-01-21] MEDS: Lactobacillus 1 EACH CAP.SPRINK PO SCH (10:16)
[2022-01-21] MEDS: amLODIPine 5 MG TABLET PO SCH (10:16)
[2022-01-21 11:47] VITALS: BP 137/86; PULSE 65; TEMP 98.8; O2SAT 96
[2022-01-21] MEDS ORDERED: cefTRIAXone 2,000 MG in 0.9 % Sodium Chloride Mini Bag 100 ML IVPB SCH (12:00)
== END 2022-01-21 14:03 | disposition home or self-care (01) | DRG 871 ==
LOC: 3ANU 19:04 → EMEROOARM 19:04 → SUATTDRO 23:27 → 3ANU 01-07 00:15 → SUATTDRO 01-08 12:49 → 3ANU 01-09 02:03
PROVIDERS: ADMIT Internal Medicine; ATTEND Hospitalist